=== PATIENT | male | born 1970 | race Caucasian/White ===

== ENCOUNTER 2018-10-29 10:28 | Emergency (ER) | payer BC, OTHER ==
[2018-10-29] MEDS ORDERED: Adacel (T-DAP) 0.5 ML SYRINGE ONE (11:00)
[2018-10-29] MEDS ORDERED: Bupivacaine 0.5% 10 ML VIAL ONE (11:41)
[2018-10-29] MEDS ORDERED: Amoxicillin/Potassium Clav 875 MG TAB ONE (13:49)
[2018-10-29] MEDS ORDERED: Bacitracin 1 PK ONE (13:49)
== END 2018-10-29 14:00 | disposition home or self-care (01) ==
LOC: NAV ERS 10:28
DX: S01.21XA Laceration without foreign body of nose, initial encounter (principal); S01.511A Laceration without foreign body of lip, initial encounter; W22.8XXA Striking against or struck by other objects, initial encounter
CPT/HCPCS: 12011; 12054; 90471; 90715; J3490